=== PATIENT | female | born 1970 | race Caucasian/White ===

== ENCOUNTER 2016-12-18 11:33 | Day surgery (SDC) | payer MEDICARE, MEDICAID ==
--- NOTE | 2016-12-18 07:44 | History and Physical - [place] ---
CHIEF COMPLAINT/HISTORY OF CHIEF COMPLAINT: This patient with a long history of intractable pain managed by spinal cord stimulator and internal generator [place] arrived at the office with indications of pain at the generator site. Computer assessment of the system showed electrode functionality. Activation of systems showed jolts and shocks electrically based at the generator site suggesting a disconnection. PAST MEDICAL HISTORY: Intractable headaches and chronic pain. PAST SURGICAL HISTORY: Lumbar spinal surgery and gallbladder surgery. EMPLOYMENT STATUS: Off-work. MEDICATIONS ON ADMISSION: List to be provided. ALLERGIES: CORTICOSTEROIDS AND DEPAKOTE. FAMILY/PSYCHOSOCIAL HISTORY: Social history - Social alcohol, smoking, and caffeine. Family history - Coronary artery disease and cancer. SYSTEMS REVIEW: The patient seems appropriate in no acute distress. The remainder of the systems review is positive for glasses, headaches, peripheral edema, renal lithiasis, degenerative arthritis, and depression. PHYSICAL EXAMINATION: Height is 5'10", weight is 190. No vital signs. HEENT: Within normal limits. LUNGS: Clear. HEART: Regular rate and rhythm. ABDOMEN: Nontender. MUSCULOSKELETAL: Examination of the musculoskeletal system shows diffuse tenderness lumbar spine. Range of motion does produce pain into both legs. The incisional site for the stimulator was intact. The generator to the posterior gluteal margin appears to be intact. Sensory zheng are intact. NEUROLOGIC: Cranial nerves are intact. IMPRESSION: 1. POST LUMBAR LAMINECTOMY SYNDROME, ICD10 CODE M96.1. 2. LUMBAR RADICULITIS, ICD10 CODE M54.16 AND M54.17. 3. SPINAL CORD STIMULATOR AND INTERNAL GENERATOR MALFUNCTION. PLAN: The initial approach is to open the generator pouch and inspect for possible disconnect. Once we reconnect or evaluate that we can activate the system to determine functionality. The patient understands that this process may take us to removal and replacement of leads. The potential risks, side effects, and complications have all been carefully reviewed and discussed. We will consider this an outpatient procedure although an overnight stay will be evaluated depending upon the extent of the surgery. LIDA JOHNSTON D.O. Date & Time JOB NUMBER: [id number] [facility]
[~2016-12-18 11:33] MED LIST: ACETAMINOPHEN 1000MG/100 ML PREMIX IV ONE; CEFAZOLIN 2 Gram 50 ML IVPB ONE
[2016-12-18] MEDS ORDERED: PROPOFOL 10 MG/ML VIAL IV ONE (16:04)
[2016-12-18] MEDS ORDERED: FLUMAZENIL 1MG/10ML VIAL IV ONE (16:04)
[2016-12-18] MEDS ORDERED: LIDOCAINE 2% MDV (20MG/ML) 20ML VIAL IV ONE (16:04)
[2016-12-18] MEDS ORDERED: MIDAZOLAM HCL 2MG/2ML VIAL IV ONE (16:04)
[2016-12-18] MEDS ORDERED: FENTANYL PF 100MCG/2ML VIAL IV ONE (16:04)
[2016-12-18] MEDS ORDERED: HYDROCODONE/APAP 7.5/325MG TABLET PO ONE (16:13)
[2016-12-18] MEDS ORDERED: CEFAZOLIN 1G VIAL IM ONE (16:14)
--- NOTE | 2016-12-24 15:51 | Operative Note ---
DATE OF SURGERY: 12/18/2016 PREOPERATIVE DIAGNOSES: 1. Post lumbar laminectomy syndrome, ICD 10 code: M96.12; Lumbar radiculitis, ICD 10 code: M54.16, M54.17. 2. Spinal cord stimulator internal generator nonfunctional. OPERATION: 1. Fluoroscopic-guided incision, subdissection and replace of an internal generator. 2. Fluoroscopic-guided complex programming, 2 stimulators, generator, 20 minutes intraop. Surgeon: Brandon Pisano D.O. Anesthesia: Local sedation. Anesthesia Provider: DEVIN Wyatt Indication: This patient presents with history of post laminectomy radiculitis managed by spinal cord stimulator, internal [place]. She contacted the clinic indicating she had a nonfunctional system. X-rays performed suggesting a missed connect or failure at the generator. She is here for revision surgery. PROCEDURE: Intravenous line, vital sign monitoring, IV sedation. Prepped, draped sterile technique. Patient was positioned prone. Sterile prep, sterile technique. The incision at generator site left posterior gluteal margin, infiltrated. Incision made, and subcutaneous dissection was conducted. The generator pouch was opened and the generator exteriorized. Leads were inspected and appeared to be in the generator firmly. The leads were removed from the generator and a new generator placed onto the field. Using external cables, each of the 2 leads was then programmed with impedance checks to insure functionality. Both stimulators checked out appropriate function. At that point, the generator which was new and placed onto the field, replacing the previous, was then interfaced with the 2 leads and impedance checked and electronic analysis performed suggesting good contact and functionality. Antibiotic irrigation and Bovie for hemostases. The new generator was then placed in the pouch, secured to the fascia with nonabsorbable suture and the incision closed with Vicryl for fascia and a running subcuticular Vicryl for skin, a Dermabond closure system. She was transported to the recovery room stable. In the recovery room, complex programming performed over 20 minutes, reestablishing stimulation. DISCHARGE INSTRUCTIONS: 1. The sites will remain clean and dry, with no showering or bathing in any way for the next 12-24 hours, but the Dermabond will allow showering in 12-24 hours. 2. Standard medications resumed including Levaquin antibiotic 500 mg once a day, 14, day 3. The office will contact the patient at home to revaluate incisional sites in 5-7 days. All the other numbers given, numbers to contact for problems given. Medications have been reviewed and screened. SKYD
== END 2016-12-18 14:40 | disposition home or self-care (01) ==
LOC: SUR 11:33
PROVIDERS: ATTEND Pain Medicine Interventional Pain Medicine
DX: T85.193A Other mechanical complication of implanted electronic neurostimulator, generator, initial encounter (principal); M96.1 Postlaminectomy syndrome, not elsewhere classified; M54.16 Radiculopathy, lumbar region; M54.17 Radiculopathy, lumbosacral region
CPT/HCPCS: 95972; 81025; 63685; 00300; J3010; J0690